=== PATIENT | male | born 1950 | race Hispanic/Latino ===

== ENCOUNTER 2017-02-11 12:45 | Emergency (ER) | payer MEDICARE ==
[2017-02-11 12:46] VITALS: BMI 19.8
[2017-02-11 12:58] VITALS: TEMP 98
--- NOTE | 2017-02-11 13:22 | ED PDOC ---
Arrival/HPI - General Chief Complaint: Trauma Time Seen by Provider: 02/11/17 13:18 Historian: Patient - History of Present Illness Narrative History of Present Illness (Text): 02/11/17 13:18 A 66 year old male on Plavix presents to the emergency department complaining of head injury after a syncopal episode prior to arrival. Patient unable to recall any details from event. Patient currently notes a tingling sensation in bilateral upper extremities but denies any other injuries, headache, dizziness, vision changes, neck pain, back pain, fever, chills, nausea, vomiting, diarrhea , abdominal pain, chest pain, shortness of breath or any other complaints. PMD: Non CPH-Provider Time/Duration: Prior to Arrival Quality: Other Context: Work Past Medical History - Provider Review Nursing Documentation Reviewed: Yes - Past History Past History: Non-Contributing - Infectious Disease Hx of Infectious Diseases: None - Tetanus Immunization Tetanus Immunization: Unknown - Cardiac Hx Cardiac Disorders: Yes Hx Hypertension: Yes - Pulmonary Hx Respiratory Disorders: No - Neurological Hx Neurological Disorder: No - HEENT Hx HEENT Disorder: No - Renal Hx Renal Disorder: No - Endocrine/Metabolic Hx Endocrine Disorders: No - Hematological/Oncological Hx Blood Disorders: No - Integumentary Hx Dermatological Disorder: No - Musculoskeletal/Rheumatological Hx Musculoskeletal Disorders: Yes Hx Arthritis: Yes Other/Comment: ankolysis spondolytis - Gastrointestinal Hx Gastrointestinal Disorders: No - Genitourinary/Gynecological Hx Genitourinary Disorders: No - Psychiatric Hx Psychophysiologic Disorder: No Hx Substance Use: Yes - Surgical History Hx Coronary Stent: Yes - Anesthesia Hx Anesthesia: Yes Hx Anesthesia Reactions: No Hx Malignant Hyperthermia: No - Suicidal Assessment Feels Threatened In Home Enviroment: No Family/Social History - Physician Review Nursing Documentation Reviewed: Yes Family/Social History: No Known Family HX Smoking Status: Heavy Smoker > 10 Cigarettes Daily Hx Alcohol Use: Yes Hx Substance Use: Yes Substance used: marijuana Allergies/Home Meds Allergies/Adverse Reactions: Allergies No Known Allergies Allergy (Verified 02/11/17 13:19) Home Medications: Home Meds Medication Instructions Recorded Confirmed Celecoxib [celeBREX] 200 mg PO BID 06/05/15 02/11/17 Hydrochlorothiazide 25 mg PO DAILY 06/05/15 02/11/17 Sildenafil Citrate [Viagra] 100 mg PO PRN PRN 06/05/15 02/11/17 predniSONE [predniSONE Tab] 10 mg PO DAILY 06/05/15 02/11/17 valACYclovir [Valtrex] 1 gm PO PRN PRN 06/05/15 02/11/17 Clopidogrel [Plavix] 75 mg PO DAILY 02/11/17 02/11/17 Folic Acid 1 mg PO DAILY 02/11/17 02/11/17 Mesalamine ER Cap [Pentasa] 500 mg PO BID 02/11/17 02/11/17 Methotrexate 0 mg PO QWK 02/11/17 02/11/17 Metoprolol Tartrate [Lopressor] 12.5 mg PO BID 02/11/17 02/11/17 Omeprazole 20 mg PO BID 02/11/17 02/11/17 Simvastatin [Zocor] 20 mg PO DAILY 02/11/17 02/11/17 Physical Exam - Physical Exam Narrative Physical Exam (Text): - Review of Systems Constitutional: (+) Head injury absent: Fatigue, Weight Change, Fevers Eyes: Normal ENT: Normal Respiratory: Normal absent: SOB, Cough, Sputum Cardiovascular: (+) Syncope absent: Chest pain, Palpitations Gastrointestinal: Normal absent: Abdominal pain, Diarrhea, Nausea, Vomiting Genitourinary: Normal. absent: Dysuria, Frequency, Hematuria Musculoskeletal: Normal. absent: Arthralgias, Back Pain, Neck Pain Skin: Normal Neurological: (+) Bilateral upper extremity tingling absent: Focal Weakness Endocrine: Normal Hemo/Lymphatic: Normal Psychiatric: Normal - Physical exam Patient appears age appropriate, speaking full sentences without difficulty - Systems Exam Head: Present: 1cm large hematoma to posterior occiput, no pulsatility. Bleeding controlled with 1 figure 8 stitch and direct pressure. Pupils: Present: PERRL Extraocular Muscles: Present: EOMI Conjunctiva: Present: Normal Mouth: Present: Moist Mucous Membranes Neck: Present: Normal Range of Motion. No: MIDLINE TENDERNESS, Paraspinal Tenderness Respiratory/Chest: Present: Clear to Auscultation, Good Air Exchange. No: Respiratory Distress, Accessory Muscle Use, Tachypnic Cardiovascular: Present: Regular Rate and Rhythm, Normal S1, S2, Peripheral Pulses Present. No: Murmurs Abdomen: Present: Normal Bowel Sounds, No: Tenderness, Peritoneal Signs, Rebound, Guarding, Distention Back: Present: Normal Inspection. No: Midline Tenderness, Paraspinal Tenderness Upper Extremity: Present: Normal Inspection. No: Cyanosis, Edema Lower Extremity: Present: Normal Inspection. No: Edema Neurological: Present: GCS=15, Speech Normal, cranial nerves II through XII fully intact with no cerebellar abnormality, neuro-sensory fully intact. No focal neurological deficits. Skin: Present: Warm, Dry, Normal Color. No: Rashes Lymphatic: Present: OX3, NI, NC Psychiatric: Present: Alert, Oriented x 3, Normal Insight, Normal Concentration Vital Signs Temp Pulse Resp BP Pulse Ox 02/11/17 16:13 75 18 148/75 98 02/11/17 15:01 81 16 152/80 H 95 02/11/17 12:57 98.0 F 80 16 153/79 H 98 Temperature: Afebrile Blood Pressure: Hypertensive Pulse: Regular Respiratory Rate: Normal Appearance: Positive for: Well-Appearing, Non-Toxic, Comfortable Pain Distress: None Mental Status: Positive for: Alert and Oriented X 3 Medical Decision Making ED Course and Treatment: 02/11/17 13:18 Impression: A 66 year old male with head injury after syncopal episode. Large hematoma in posterior occiput, bleeding controlled with 1 figure 8 stitch and direct pressure. last Tb 2014, as per pt pt has no focal neurological deficits on examination Differential Diagnosis included but are not limited to: Syncope Plan: -- Head CT -- Chest xray -- Labs -- Reassess and disposition Progress Notes: PROCEDURE: LACERATION REPAIR Performed by the emergency provider Location: Posterior occiput Length: 1 cm Description: Bleeding controlled after applying direct pressure, clean wound edges, no foreign bodies Distal CMS: Normal. No deficits. Neurovascularly intact. Preparation: The wound was cleaned with NS and [place]. The area was prepped and draped in the usual sterile fashion. Exploration: The wound was explored and no foreign bodies were found. Procedure: The wound was closed with 1 figure 8 stitch. There was good approximation. Post-Procedure: Good closure and hemostasis. The patient tolerated the procedure well and there were no complications. CSM remains intact. Post procedure dressing applied. Report Date : 02/11/2017 14:22:54 PROCEDURE: CT HEAD WITHOUT CONTRAST. Dictator : Sang Whitman MD IMPRESSION: No intracranial hemorrhage. High right parietal scalp hematoma. Rounded calcification anterior to upper cervical spinal cord as previously noted , without interval change. 02/11/17 15:00 Case discussed in detail with Dr. Hooper, who accepts patient to telemetry observation under his service. 02/11/17 16:39 scalp started bleeding again 5 nylon sutures placed bleeding controlled case dw Dr. Osorio, pt's PMD, states to dc pt home with outpatient f/u I expressed my concern that pt has an extensive cardiac hx on plavix and recommended admission/obs in the hospital The patient refuses admission and wishes to leave the Emergency Department against my medical advice. Patient was told that admission to the hospital is necessary and a full explanation of the reasons why was given, and understood by patient. The risks of leaving were explained and include worsening of condition, and permanent disability and from an undiagnosed or untreated condition. The patient accepts these risks, and is in my judgment is competent and capable of understanding the clinical situation and my explanation of the risks of leaving. Patient was given the opportunity to ask questions and change mind. The patient was instructed regarding the best care for the present symptoms, and to follow up with Dr. Osorio as soon as possible, or return to the Emergency Department at any time for continuing care. pt's son states he will take him home pt's son states that they have an appt with a commissary steward tomorrow 2:45 02/11/17 17:02 EKG interpreted by ER physician. Normal sinus. No ST-segment elevations. Normal intervals. - Lab Interpretations Lab Results: 02/11/17 13:30 02/11/17 13:30 Lab Results 02/11/17 13:30: Sodium 136, Potassium 3.8, Chloride 99, Carbon Dioxide 26, Anion Gap 15, BUN 45 H, Creatinine 0.8, Est GFR ( Amer) > 60, Est GFR ( Non-Af Amer) > 60, Random Glucose 139 H, Calcium 9.7, Total Bilirubin 1.0, AST 31, ALT 42, Alkaline Phosphatase 94, Lactate Dehydrogenase 571, Total Creatine Kinase 71, Troponin I < 0.01, Total Protein 7.1, Albumin 4.4, Globulin 2.7, Albumin/Globulin Ratio 1.6 02/11/17 13:30: PT 11.2, INR 1.04, APTT 28.3 02/11/17 13:30: WBC 11.7 H, RBC 4.56, Hgb 15.7, Hct 44.1, MCV 96.7, MCH 34.4, MCHC 35.6, RDW 16.4 H, Plt Count 206, MPV 9.9, Gran % 94.4 H, Lymph % (Auto) 2.7 L, Overton % (Auto) 2.6, Eos % (Auto) 0.1 L, Baso % (Auto) 0.2, Gran # 11.04 H , Lymph # 0.3 L, Overton # 0.3, Eos # 0.0, Baso # 0.02 I have reviewed the lab results: Yes - RAD Interpretation Radiology Orders: 02/11/17 13:19 HEAD W/O CONTRAST [CT] Stat 02/11/17 13:20 CHEST PORTABLE [RAD] Stat 02/11/17 15:07 CERVICAL SPINE W/O CONTRAST [CT] Stat - Scribe Statement The provider has reviewed the documentation as recorded by the Scribe Aminta Knox Provider Scribe Attestation: All medical record entries made by the Scribe were at my direction and personally dictated by me. I have reviewed the chart and agree that the record accurately reflects my personal performance of the history, physical exam, medical decision making, and the department course for this patient. I have also personally directed, reviewed, and agree with the discharge instructions and disposition. Disposition/Present on Arrival - Present on Arrival Any Indicators Present on Arrival: No History of DVT/PE: No History of Uncontrolled Diabetes: No Urinary Catheter: No History Surgical Site Infection Following: None - Disposition Have Diagnosis and Disposition been Completed?: Yes Diagnosis: Syncope Disposition: AGAINST MEDICAL ADVICE Disposition Time: 15:00 Patient Plan: Discharge, Observation Patient Problems: Current Active Problems Problem Status Onset Syncope Acute Condition: GUARDED Discharge Instructions (ExitCare): Syncope (ED) Additional Instructions: PLEASE RETURN TO THE EMERGENCY DEPARTMENT FOR NEW OR WORSENING SYMPTOMS. RETURN RIGHT AWAY IF YOU CANNOT FOLLOW UP WITH YOUR PRIMARY CARE DOCTOR, CLINIC, OR SPECIALIST IN 1-2 DAYS. PLEASE REPORT TO YOUR PHYSICIAN IN 7-10 DAYS FOR SUTURE REMOVAL FROM YOUR SCALP Prescriptions: Cephalexin [Keflex] 500 mg PO TID #21 capsule Referrals: David Gonzalez MD [Staff Provider] - Follow up with primary
[2017-02-11 13:49] LABS: ADD MANUAL DIFF? NO; BASO # 0.02 K/mm3 (0.0-2.0); BASO % 0.2 % (0.0-3.0); EOS % 0.1 % (1.5-5.0); GRAN # 11.04 (1.4-6.5); GRAN % 94.4 % (50.0-68.0); HEMATOCRIT 44.1 % (42.0-52.0); LYMPH # 0.3 (1.2-3.4); LYMPH % 2.7 % (22.0-35.0); MEAN CELL VOLUME 96.7 fL (80.0-105.0); MEAN CORPUSCULAR HEMOGLOBIN 34.4 pg (25.0-35.0); MEAN CORPUSCULAR HGB CONC 35.6 g/dl (31.0-37.0); MEAN PLATELET VOLUME 9.9 fl (7.0-11.0); MONO # 0.3 (0.1-0.6); MONO % 2.6 % (1.0-6.0); PLATELET COUNT 206 10^3/uL (120.0-450.0); RED CELL DISTRIBUTION WIDTH 16.4 % (11.5-14.5); WHITE BLOOD COUNT 11.7 10^3/ul (4.5-11.0)
[2017-02-11 14:03] LABS: ALB/GLOB RATIO 1.6 (1.1-1.8); ALKALINE PHOSPHATASE 94 U/L (38-133); ALT/SGPT 42 U/L (7-56); AST/SGOT 31 U/L (15-59); BLOOD UREA NITROGEN 45 mg/dL (7-21); CALCIUM 9.7 mg/dL (8.4-10.5); CARBON DIOXIDE 26 mmol/L (21-33); CHLORIDE 99 mmol/L (98-107); GFR AFRICAN-AMERICAN > 60; GLUCOSE,RANDOM 139 mg/dL (70-110); POTASSIUM 3.8 mmol/L (3.6-5.0); SODIUM 136 mmol/L (132-148); TOTAL PROTEIN 7.1 g/dL (5.8-8.3)
[2017-02-11 14:07] LABS: INR 1.04 (0.93-1.08); PARTIAL THROMBOPLASTIN TIME 28.3 Seconds (23.7-30.8)
[2017-02-11 14:17] LABS: TROPONIN I < 0.01 ng/mL
--- NOTE | 2017-02-11 14:24 | CT ---
PROCEDURE: CT HEAD WITHOUT CONTRAST. HISTORY: fall on plavix COMPARISON: None available. TECHNIQUE: Axial computed tomography images were obtained through the head/brain without intravenous contrast. Radiation dose: Total exam DLP = 677.45 mGy-cm. This CT exam was performed using one or more of the following dose reduction techniques: Automated exposure control, adjustment of the mA and/or kV according to patient size, and/or use of iterative reconstruction technique. FINDINGS: HEMORRHAGE: No intracranial hemorrhage. BRAIN: No mass effect or edema. Mild diffuse atrophy. Mild periventricular white matter lucency consistent with chronic microvascular ischemic change. No evidence of acute infarct. VENTRICLES: Unremarkable. No hydrocephalus. CALVARIUM: Unremarkable. PARANASAL SINUSES: Unremarkable as visualized. No significant inflammatory changes. MASTOID AIR CELLS: Unremarkable as visualized. No inflammatory changes. OTHER FINDINGS: High right parietal scalp hematoma. Previously described rounded calcification anterior to the spinal cord just below the level of the foramen magnum is again identified, unchanged compared to 06/05/2015. It measures 12 mm in greatest dimension. Uncertain significance. This is only partially included on this examination IMPRESSION: No intracranial hemorrhage. High right parietal scalp hematoma. Rounded calcification anterior to upper cervical spinal cord as previously noted, without interval change.
--- NOTE | 2017-02-11 15:34 | RAD ---
HISTORY: cough COMPARISON: No prior. FINDINGS: LUNGS: No active pulmonary disease. PLEURA: No significant pleural effusion identified, no pneumothorax apparent. CARDIOVASCULAR: Normal. OSSEOUS STRUCTURES: No significant abnormalities. VISUALIZED UPPER ABDOMEN: Normal. OTHER FINDINGS: None. IMPRESSION: No active disease.
[2017-02-11 17:25] VITALS: BP 145/81; PULSE 70; RESP 17; O2SAT 99
--- NOTE | 2017-02-11 18:01 | CT ---
PROCEDURE: CT Cervical Spine without contrast HISTORY: Trauma/ fall COMPARISON: None available. TECHNIQUE: Axial computed tomography images were obtained of the cervical spine without the use of intravenous contrast. Coronal and sagittal reformatted images were created and reviewed. Radiation dose: Total exam DLP = 399.04 mGy-cm. This CT exam was performed using one or more of the following dose reduction techniques: Automated exposure control, adjustment of the mA and/or kV according to patient size, and/or use of iterative reconstruction technique. FINDINGS: VERTEBRAE: Reversal of the anatomic lordosis with kyphosis. 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 Grade 1 anterolisthesis C3-4 and C4-5. Severe disc degenerative change at multiple levels. DISCS/SPINAL CANAL/NEURAL FORAMINA: Multilevel non marginal osteophyte formation. No evidence of jumped facet or locked facets. PARASPINAL SOFT TISSUES: Unremarkable. OTHER FINDINGS: Cervical ribs bilaterally common incidental finding. Air-fluid level left maxillary sinus consistent with acute sinusitis. IMPRESSION: Multi level degenerative changes, no acute fracture, KARLEY jumped or locked facet. 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
--- NOTE | 2017-02-12 13:22 | CARD ---
APPROVED REPORT EKG Measurement Heart [id number] <Conclusion> Normal sinus rhythm Possible Left atrial enlargement Left ventricular hypertrophy STTChantel moscoso c/w ischemia
== END 2017-02-11 17:24 | disposition left against medical advice (07) ==
LOC: ED 12:45 → UNDOADMOB 15:01 → ERH 15:01
DX: R55 Syncope and collapse (principal); I10 Essential (primary) hypertension